=== PATIENT | male | born 1940 | race Caucasian/White ===

== ENCOUNTER 2019-01-08 09:07 | Emergency (ER) | payer OTHER, SELFPAY ==
[2019-01-08] VITALS (11 sets, daily range): BP systolic 82–230; BP diastolic 52–141; PULSE 67–93; RESP 13–21; TEMP 36.3–36.4; O2SAT 95–98
--- NOTE | 2019-01-08 09:30 | PC.NURSE ---
woke up at 4am, with across the chest pain, left shoulder, scapular pain, took ibuprofen, was able to sleep, woke up at 7, continue to have pain, reports, shortness of breath and dyspneic on exertion, on arrival with bilateral hand sensitivity. denies fever,vomiting or diarrhea. on arrival hypertensive 193/102 denies headache or visual changes.
--- NOTE | 2019-01-08 09:36 | DI.RAD.S_ITS ---
PROCEDURE: XR CHEST 1V INDICATIONS: chest pain TECHNIQUE: One view of the chest was acquired. COMPARISON: None. FINDINGS: Surgical changes and devices: None. Lungs and pleura: Moderate diffuse reticulonodular density.. No pleural effusions or pneumothorax. Mediastinum: Large hiatal hernia. Mediastinal contours otherwise appear normal. Heart size is enlarged. Bones and chest wall: No suspicious bony lesions. Overlying soft tissues appear unremarkable. IMPRESSION: 1. Moderate pulmonary edema versus atypical pneumonia. 2. Hiatal hernia. Dictated by: Isra Mary M.D. on 01/08/2019 at 9:49 Approved by: Isra Mary M.D. on 01/08/2019 at 9:50
--- NOTE | 2019-01-08 09:36 | DI.CT.S_ITS ---
PROCEDURE: CT ANGIO CHEST ABDOMEN PELVIS INDICATIONS: HTN severe chest pain TECHNIQUE: Precontrast 5 mm thick sections acquired from the lung apices to the iliac crests. After the administration of intravenous contrast, 2.5 mm thick sections again acquired from the lung apices to the iliac crests. Maximum intensity projection (MIP) oblique sagittal and coronal reformats were then acquired. For radiation dose reduction, the following was used: automated exposure control. COMPARISON: None. FINDINGS: Image quality: Excellent. AORTA: No intramural hematoma. No evidence of dissection, nor aneurysm. No significant stenosis. CHEST: Lungs and pleura: No acute airspace opacities. Mild bibasilar scarring versus atelectasis. No pneumothorax. Trace left pleural effusion. Central and peripheral airways are patent and normal in caliber. Mediastinum: Heart size is normal. Calcification of the coronary vasculature. No pericardial effusion. No mediastinal or hilar adenopathy by size criteria. Central pulmonary arteries are normal in size. Esophagus is normal in caliber. Large hiatal hernia. Bones and chest wall: No axillary adenopathy by size criteria. Thyroid gland is within normal limits. No suspicious bony lesions. No vertebral body compression fractures. ABDOMEN: Vasculature: Celiac trunk and mesenteric arteries are patent. Renal arteries are also patent. Solid organs: Liver is normal in size and enhancement. Gallbladder demonstrates multiple calculi within its lumen.. Biliary system is non dilated. Pancreas enhances normally. Spleen is normal in size and enhancement. No adrenal nodules. Both kidneys are normal in size and enhancement, without hydronephrosis. Peritoneum and bowel: No free fluid or air. Bowel loops are normal in caliber and wall thickness. Nodes and vessels: No retroperitoneal or mesenteric adenopathy by size criteria. Inferior vena cava is normal in morphology. Miscellaneous: No ventral hernias. PELVIS: Genitourinary: Bladder wall thickness is normal. Miscellaneous: No inguinal hernias or adenopathy. No ventral hernias. Bones: No suspicious bony lesions. No vertebral body compression fractures. IMPRESSION: 1. No evidence of aortic dissection, nor aneurysm. 2. Large hiatal hernia. 3. Cholelithiasis. 4. Coronary artery disease. Dictated by: Isra Mary M.D. on 01/08/2019 at 10:06 Approved by: Isra Mary M.D. on 01/08/2019 at 10:10
--- NOTE | 2019-01-08 09:43 | ED.CHESTPAIN ---
HPI - Chest Pain General Chief Complaint: Chest Pain Stated Complaint: PAIN TOP OF CHEST Time Seen by Provider: 01/08/19 09:12 Source: patient and family Mode of arrival: ambulatory Limitations: no limitations History of Present Illness HPI narrative: Patient is a 78-year-old male presenting with left scapular pain and chest pain. He said it welcome him asleep this morning. It is across his chest achy in nature. He has never had anything like this before. He feels like it hurts every time he takes a deep breath. Pain is not worse with any arm movement. He is extremely hypertensive in the ED. He says he typically does take lisinopril he has missed it before in the blood pressure has not been this elevated. They live in [place] of a fly frequent they just arrived in [place] 3 days ago. He denies any calf pain or swelling. MD complaint: chest pain Related Data Allergies Allergy/AdvReac Type Severity Reaction Status Date / Time No Known Drug Allergies Allergy Verified 01/08/19 09:25 Review of Systems Review of Systems ROS Unobtainable: All systems reviewed & are unremarkable except as noted in HPI and below Cardiovascular Reports chest pain, Denies syncope, Denies rapid heart rate, Denies edema, Reports lightheadedness, Reports radiating jaw, neck or arm pain, Denies palpitations, Denies dyspnea and Denies dyspnea on exertion Respiratory Denies cough, Denies dyspnea, Denies dyspnea on exertion and Denies wheezing Gastrointestinal Gastrointestinal: Denies abdominal pain, Denies change in bowel habits, Denies diarrhea, Denies nausea and Denies vomiting Neurologic Denies syncope Endocrine Denies palpitations Allergic/Immunologic Denies wheezing FORMERLY [facility] Social History Smoking Status: Never smoker Social History Smoking Status: Never smoker Exam Initial Vital Signs Initial Vital Signs: Vital Signs Pulse Rate 90 01/08/19 09:15 Respiratory Rate 18 01/08/19 09:15 Blood Pressure 210/141 H 01/08/19 09:15 Pulse Oximetry 96 01/08/19 09:15 GENERAL: Alert male appears slightly pale, appears in pain HEENT: Head atraumatic,EOMI, pupils reactive, CARDIOVASCULAR: Regular rate and rhythm without murmurs, rubs or gallops. Chest pain is not reproducible with palpation RESPIRATORY: Breath sounds equal bilaterally, no wheezes rales or rhonchi. ABDOMEN: Soft, nontender. Normoactive bowel sounds all 4 quadrants. No guarding or rebound. EXTREMITIES: Normal range of motion, no clubbing or edema. Neurovascularly intact NEUROLOGICAL: Alert and oriented x4.Normal gait and speech. Cranial nerves II through XII grossly intact. SKIN: Warm, dry, no laceration, no petechiae, no rashes or lesions. Course Orders Ordered: ED Orders 01/08/19 09:34 B Type Natriuretic Peptide Stat Complete Blood Count AUTO DIFF Stat Comprehensive Metabolic Panel Stat Lipase Stat Troponin & CK Cardiac Panel Stat 01/08/19 09:36 CT angio chest abdomen pelvis Stat XR chest 1V Stat EKG-12 Lead Stat 01/08/19 09:38 EKG-12 Lead Stat Discontinued Medications Aspirin (Aspirin Chew) 324 mg PO NOW ONE Stop: 01/08/19 09:37 Last Admin: 01/08/19 09:44 Dose: 324 mg Sodium Chloride (Normal Saline 0.9%) 1,000 mls @ 150 mls/hr IV CONT DYANA Last Infusion: 01/08/19 11:17 Dose: 0 mls/hr Infusion: 01/08/19 10:15 Dose: 1,000 mls/hr Admin: 01/08/19 10:09 Dose: 150 mls/hr Morphine Sulfate (Morphine) 2 mg IV NOW ONE Stop: 01/08/19 10:51 Last Admin: 01/08/19 10:57 Dose: 2 mg Nitroglycerin (Nitrostat) 0.4 mg SL [id number] PRN PRN Reason: Chest Pain Last Admin: 01/08/19 10:02 Dose: 0.4 mg Pantoprazole Sodium (Protonix) 40 mg IV NOW ONE Stop: 01/08/19 10:51 Last Admin: 01/08/19 11:03 Dose: 40 mg Vital Signs - 8 hr 01/08/19 09:15 01/08/19 09:18 01/08/19 09:30 Temperature 97.3 F L Pulse Rate 90 88 78 Respiratory Rate 18 15 20 Blood Pressure 230/110 H Blood Pressure [Left Arm] 210/141 H 193/102 H Pulse Oximetry 96 97 95 01/08/19 09:45 01/08/19 10:00 01/08/19 10:02 Temperature Pulse Rate 72 83 88 Respiratory Rate 15 20 16 Blood Pressure 172/92 H Blood Pressure [Left Arm] 119/72 152/83 H 152/83 H Pulse Oximetry 96 96 01/08/19 10:15 01/08/19 10:20 01/08/19 10:22 Temperature Pulse Rate 67 71 82 Respiratory Rate 16 13 17 Blood Pressure Blood Pressure [Left Arm] 82/52 L 105/60 172/92 H Pulse Oximetry 01/08/19 11:07 01/08/19 12:30 Temperature 97.6 F Pulse Rate 81 93 H Respiratory Rate 18 21 Blood Pressure Blood Pressure [Left Arm] 158/83 H 115/72 Pulse Oximetry 98 97 MDM - Chest Pain Lab Data Attestation: I reviewed the patient's lab results. Result diagrams: 01/08/19 09:34 01/08/19 09:34 Lab Results 01/08/19 01/08/19 Range/Units 09:34 09:34 WBC 8.1 (4.5-11.0) X10^3/uL RBC 5.66 (4.5-5.9) X10^6/uL Hgb 15.4 (13.5-17.5) g/dL Hct 46.8 (41-53) % MCV 82.7 (80-100) fL MCH 27.1 (26-34) PG MCHC 32.8 (30-36) % RDW 15.7 H (11.6-14.8) % Plt Count 223 (150-400) X10^3/uL Neut % (Auto) 64.7 (50-75) % Lymph % (Auto) 21.2 L (25-40) % [place] % (Auto) 9.8 (3-14) % Eos % (Auto) 3.8 (2-4) % Baso % (Auto) 0.5 (0-2) % Neut # (Auto) 5200 (9745-7514) /uL Lymph # (Auto) 1700 (0150-7415) /uL [place] # (Auto) 800 (0-900) /uL Eos # (Auto) 300 (0-450) /uL Baso # (Auto) 0 (0-100) /uL Sodium 143 (137-145) mmol/L Potassium 3.8 (3.4-5.1) mmol/L Chloride 105 (98-107) mmol/L Carbon Dioxide 26 (22-32) mmol/L BUN 15 (9-20) mg/dL Creatinine 1.00 (0.66-1.25) mg/dL Estimated GFR > 60.0 (>60) mL/min BUN/Creatinine Ratio 15.0 (6-22) Glucose 106 (80-110) mg/dL Calcium 9.2 (8.4-10.2) mg/dL Total Bilirubin 0.8 (0.2-1.3) mg/dL AST 23 (17-59) IU/L ALT 26 (21-72) IU/L Alkaline Phosphatase 141 H (38-126) U/L Total Creatine Kinase 88 (55-170) U/L CK-MB (CK-2) TNP CK-MB (CK-2) Rel Index TNP Troponin I < 0.012 (0.01-0.034) ng/mL B-Natriuretic Peptide < 100 (<100) Total Protein 8.4 H (6.3-8.2) g/dL Albumin 4.5 (3.5-5.0) g/dL Globulin 3.9 (1.7-4.1) g/dL Albumin/Globulin Ratio 1.2 (1.0-2.8) Lipase 80 (23-300) U/L Urine Dip Bedside Urine Glucose Negative Bedside Urine Bilirubin - Negative Bedside Urine Ketone - Negative Urine Specific [place] 1.010 Bedside Urine Occult Blood - Negative Bedside Urine pH 7.0 Bedside Urine Protein - Negative Bedside Urine Urobilinogen +/- 1mg Bedside Urine Nitrite - Negative Bedside Urine Leukocytes - Negative Esterase Imaging Data Chest x-ray: Radiologist's impression: PROCEDURE: CT ANGIO CHEST ABDOMEN PELVIS INDICATIONS: HTN severe chest pain TECHNIQUE: Precontrast 5 mm thick sections acquired from the lung apices to the iliac crests. After the administration of intravenous contrast, 2.5 mm thick sections again acquired from the lung apices to the iliac crests. Maximum intensity projection (MIP) oblique sagittal and coronal reformats were then acquired. For radiation dose reduction, the following was used: automated exposure control. COMPARISON: None. FINDINGS: Image quality: Excellent. AORTA: No intramural hematoma. No evidence of dissection, nor aneurysm. No significant stenosis. CHEST: Lungs and pleura: No acute airspace opacities. Mild bibasilar scarring versus atelectasis. No pneumothorax. Trace left pleural effusion. Central and peripheral airways are patent and normal in caliber. Mediastinum: Heart size is normal. Calcification of the coronary vasculature. No pericardial effusion. No mediastinal or hilar adenopathy by size criteria. Central pulmonary arteries are normal in size. Esophagus is normal in caliber. Large hiatal hernia. Bones and chest wall: No axillary adenopathy by size criteria. Thyroid gland is within normal limits. No suspicious bony lesions. No vertebral body compression fractures. ABDOMEN: Vasculature: Celiac trunk and mesenteric arteries are patent. Renal arteries are also patent. Solid organs: Liver is normal in size and enhancement. Gallbladder demonstrates multiple calculi within its lumen.. Biliary system is non dilated. Pancreas enhances normally. Spleen is normal in size and enhancement. No adrenal nodules. Both kidneys are normal in size and enhancement, without hydronephrosis. Peritoneum and bowel: No free fluid or air. Bowel loops are normal in caliber and wall thickness. Nodes and vessels: No retroperitoneal or mesenteric adenopathy by size criteria. Inferior vena cava is normal in morphology. Miscellaneous: No ventral hernias. PELVIS: Genitourinary: Bladder wall thickness is normal. Miscellaneous: No inguinal hernias or adenopathy. No ventral hernias. Bones: No suspicious bony lesions. No vertebral body compression fractures. IMPRESSION: 1. No evidence of aortic dissection, nor aneurysm. 2. Large hiatal hernia. 3. Cholelithiasis. 4. Coronary artery disease. Dictated by: Isra Mary M.D. on 01/08/2019 at 10:06 CT Angio: Radiologist's impression: PROCEDURE: CT ANGIO CHEST ABDOMEN PELVIS INDICATIONS: HTN severe chest pain TECHNIQUE: Precontrast 5 mm thick sections acquired from the lung apices to the iliac crests. After the administration of intravenous contrast, 2.5 mm thick sections again acquired from the lung apices to the iliac crests. Maximum intensity projection (MIP) oblique sagittal and coronal reformats were then acquired. For radiation dose reduction, the following was used: automated exposure control. COMPARISON: None. FINDINGS: Image quality: Excellent. AORTA: No intramural hematoma. No evidence of dissection, nor aneurysm. No significant stenosis. CHEST: Lungs and pleura: No acute airspace opacities. Mild bibasilar scarring versus atelectasis. No pneumothorax. Trace left pleural effusion. Central and peripheral airways are patent and normal in caliber. Mediastinum: Heart size is normal. Calcification of the coronary vasculature. No pericardial effusion. No mediastinal or hilar adenopathy by size criteria. Central pulmonary arteries are normal in size. Esophagus is normal in caliber. Large hiatal hernia. Bones and chest wall: No axillary adenopathy by size criteria. Thyroid gland is within normal limits. No suspicious bony lesions. No vertebral body compression fractures. ABDOMEN: Vasculature: Celiac trunk and mesenteric arteries are patent. Renal arteries are also patent. Solid organs: Liver is normal in size and enhancement. Gallbladder demonstrates multiple calculi within its lumen.. Biliary system is non dilated. Pancreas enhances normally. Spleen is normal in size and enhancement. No adrenal nodules. Both kidneys are normal in size and enhancement, without hydronephrosis. Peritoneum and bowel: No free fluid or air. Bowel loops are normal in caliber and wall thickness. Nodes and vessels: No retroperitoneal or mesenteric adenopathy by size criteria. Inferior vena cava is normal in morphology. Miscellaneous: No ventral hernias. PELVIS: Genitourinary: Bladder wall thickness is normal. Miscellaneous: No inguinal hernias or adenopathy. No ventral hernias. Bones: No suspicious bony lesions. No vertebral body compression fractures. IMPRESSION: 1. No evidence of aortic dissection, nor aneurysm. 2. Large hiatal hernia. 3. Cholelithiasis. 4. Coronary artery disease. Dictated by: Isra Mary M.D. on 01/08/2019 at 10:06 ECG Data Attestation: I personally reviewed and interpreted this ECG as follows: Prior ECG tracings: not available for review Interpretation: EKG 1. Normal sinus rhythm rate [address] changes no T-wave inversions here interval 171 EKG 2. Normal sinus rhythm rate [address] changes PVC note EKG 3. Is normal sinus rhythm rate 81 no changes from prior MDM Narrative Medical decision making narrative: While initially talking with patient, he said early said he felt his head get very flushed and hot the pain seems to be moving to his abdomen he does not feel right. He is lowered. Decision for emergent CT angio to rule out dissection. Patient returned from CT got 2 nitroglycerin since neither 1 helped with pain. Blood pressure immediately dropped into the 60s his. Did return with IV fluids and time. Patient then began having intense pain clutching his chest is radiating up to his jaw. He did seem quite anxious, he states that he cannot take a deep breath due to pain. He was given morphine immediately before his. He was then given some Ativan. Ativan did seem to help the most his. He still has some radiating pain to his neck, but overall feeling much better. CT negative for dissection, did reveal coronary artery disease and large hiatal hernia. He says he has a known large hiatal hernia is does not feel like this is pain from that. Due to patient's ongoing pain is coronary artery disease identified on CT patient will likely benefit from cardiology evaluation. Dr. David, hospitalist at [facility] happily accepts patient. Discharge Plan Departure Patient Disposition: [facility] Clinical Impression: Chest pain Qualifiers: Chest pain type: unspecified Qualified Code(s): R07.9 - Chest pain, unspecified Discharge Date/Time: 01/08/19 12:51 Interventions: ED Discharge Assessment Last Done: 01/08/19 12:50
[2019-01-08] MEDS: ASPIRIN 81 MG TAB 324 MG PO (09:44)
[2019-01-08 09:53] LABS: Add Manual Diff / Slide Review NO; Basophils Absolute Auto 0 /uL (0-100); Basophils Percent Auto 0.5 % (0-2); Eosinophils Absolute Auto 300 /uL (0-450); Eosinophils Percent Auto 3.8 % (2-4); Hematocrit 46.8 % (41-53); Hemoglobin 15.4 g/dL (13.5-17.5); Lymphocytes Absolute Auto 1700 /uL (1100-4500); Lymphocytes Percent Auto 21.2 % (25-40); Mean Corpuscular HGB Conc 32.8 % (30-36); Mean Corpuscular Hemoglobin 27.1 PG (26-34); Mean Corpuscular Volume 82.7 fL (80-100); Monocytes Absolute Auto 800 /uL (0-900); Monocytes Percent Auto 9.8 % (3-14); Neutrophils Absolute Auto 5200 /uL (1500-7000); Neutrophils Percent Auto 64.7 % (50-75); Platelet Count 223 X10^3/uL (150-400); Red Blood Cell Count 5.66 X10^6/uL (4.5-5.9); Red Cell Distribution Width 15.7 % (11.6-14.8); White Blood Cell Count 8.1 X10^3/uL (4.5-11.0)
[2019-01-08] MEDS: NITROGLYCERIN 0.4 MG SL TAB SL (10:02)
[2019-01-08] MEDS: SODIUM CHLORIDE 0.9% 1,000 ML 150 ML IV (10:09)
[2019-01-08 10:11] LABS: B Type Natriuretic Peptide < 100 (<100)
--- NOTE | 2019-01-08 10:28 | PC.NURSE ---
pt recieved 2 ntg SL, remain alert and awake, diaphoretic, pale, bp 70's cardiac exercise specialist [address] dr arana at , given ns bolus.
[2019-01-08 10:44] LABS: Alanine Aminotransferase 26 IU/L (21-72); Albumin 4.5 g/dL (3.5-5.0); Albumin Globulin Ratio 1.2 (1.0-2.8); Alkaline Phosphatase 141 U/L (38-126); Aspartate Aminotransferase 23 IU/L (17-59); Bilirubin Total 0.8 mg/dL (0.2-1.3); Blood Urea Nitrogen 15 mg/dL (9-20); Calcium 9.2 mg/dL (8.4-10.2); Carbon Dioxide 26 mmol/L (22-32); Chloride 105 mmol/L (98-107); Creatine Kinase 88 U/L (55-170); Estimated Glomerular Filt Rate > 60.0 mL/min (>60); Globulin 3.9 g/dL (1.7-4.1); Glucose 106 mg/dL (80-110); HEMOLYSIS < 15 (0-50); Lipase 80 U/L (23-300); Potassium 3.8 mmol/L (3.4-5.1); Sodium 143 mmol/L (137-145); Total Protein 8.4 g/dL (6.3-8.2)
[2019-01-08 10:54] LABS: Troponin I < 0.012 ng/mL (0.01-0.034)
[2019-01-08] MEDS: MORPHINE 2 MG/ML INJ IV (10:57)
[2019-01-08] MEDS: PANTOPRAZOLE 40 MG VIAL IV (11:03)
--- NOTE | 2019-01-08 11:10 | PC.NURSE ---
pt reporting increase in shortness of breath. skin warm dry pink. 4lpm via nc provided. breath sound clear to auscultate.
--- NOTE | 2019-01-08 11:19 | PC.NURSE ---
pt given ntg, dropped bp, fluids infused. close observation and monitoring
--- NOTE | 2019-01-08 14:16 | PC.NURSE ---
report given patricia van. [facility].
== END 2019-01-08 12:51 | disposition short-term general hospital (02) ==
PROVIDERS: Emergency Provider Emergency Medicine
DX: R07.9 Chest pain, unspecified (principal)
CPT/HCPCS: 36591; 71045; 71275; 74174; 80053; 81003; 82550; 83690; 83880; 84484; 85025; 93005; 93041; 96361; 96374; 96375; 99285; 99291; C9113; J2270; Q9967